=== PATIENT | female | born 1980 | race Caucasian/White ===

== ENCOUNTER 2016-07-27 21:17 | Emergency (ER) | payer MEDICAID ==
[~2016-07-27] VITALS: Ht 170.2 cm; Wt 113.6 kg
[~2016-07-27 21:17] MED LIST: ALBUTEROL MDI IH; ALBUTEROL0.09 MG/A1 IH; AMOXICILLIN 50500 MG PO; BRINTELLIX10; CELEXA10 MG PO; DIABETA 5MG5 MG/TAB PO; DOXYCYCLINE 10100 MG PO; GLUCOPHAGE500 MG/TAB PO; GRALISE600 MG PO; JANUVIA25 MG PO; MEDROL 4MG DOSPA4 MG PO; MOBIC15 MG PO; NEURONTIN800 MG/TAB PO; NORCO 325 MG-51 TAB PO; PERCOCET 325 MG1 TAB; PHENERGAN 25 TA25 MG PO; PRILOSEC 20MG20 MG PO; ULTRAM 50MG TAB50 MG PO
[2016-07-27 21:25] VITALS: TEMP 98.5
[2016-07-27 22:33] LABS: BASO # 0.1 (0.0-0.2); BASO % 0.5 % (0.0-2.0); EOS # 0.3 (0.0-0.7); EOS % 1.8 % (0-4.0); GRAN # 7.8 (1.4-6.5); GRAN % 55.6 % (42.2-75.2); HEMATOCRIT 48.2 % (37.0-47.0); LYMPH # 4.7 (1.2-3.4); LYMPH % 33.5 % (20.0-51.0); MEAN CELL VOLUME 84 fl (80.0-100.0); MEAN CORPUSCULAR HEMOGLOBIN 28 pg (27.0-31.0); MEAN CORPUSCULAR HGB CONC 33 g/dl (33.0-37.0); MEAN PLATELET VOLUME 10.4 fl (7.4-10.4); MONO # 1.2 (0.1-0.6); MONO % 8.3 % (1.7-9.3); PLATELET COUNT 265 K/mm3 (130-400); RED BLOOD COUNT 5.76 M/mm3 (4.10-5.30); REDCELL DISTRIBUTION WIDTH-CV 13.1 % (11.5-14.5); WHITE BLOOD COUNT 13.9 K/mm3 (4.8-10.8)
[2016-07-27 22:43] LABS: ADJUSTED CALCIUM 10.1 mg/dL (8.4-10.2); ALANINE AMINOTRANSFERASE 24 U/L (9-52); ALBUMIN 4.4 gm/dL (3.5-5.0); ALKALINE PHOSPHATASE 93 U/L (50-136); ANION GAP 15 mmol/L (7-16); BILIRUBIN,TOTAL 0.7 mg/dL (0.0-1.0); BLOOD UREA NITROGEN 13 mg/dL (7-17); CALCIUM 10.4 mg/dL (8.4-10.2); CARBON DIOXIDE 27 mmol/L (22-30); CHLORIDE 100 mmol/L (98-107); CREATININE, serum 0.69 mg/dL (0.52-1.25); GLUCOSE 159 mg/dL (74-106); POTASSIUM 4.3 mmol/L (3.4-5.0); SODIUM 142 mmol/L (137-145); TOTAL PROTEIN 8.3 gm/dL (6.4-8.2)
[2016-07-27 23:05] LABS: TROPONIN-I < 0.012 ng/mL (0.000-0.034)
[2016-07-27 23:38] VITALS: BP 114/52; PULSE 108
== END 2016-07-27 23:38 | disposition home or self-care (01) ==
LOC: COL.ER 21:17
PROVIDERS: Family Medicine
DX: R07.9 Chest pain, unspecified (principal); E11.9 Type 2 diabetes mellitus without complications; F17.210 Nicotine dependence, cigarettes, uncomplicated; Z79.84 Long term (current) use of oral hypoglycemic drugs
CPT/HCPCS: J1885

== ENCOUNTER → 2016-08-20 | Outpatient (CLI) | payer MEDICAID | LOC: COL.RAD 12:48 | DX: M25.561 Pain in right knee (principal); M25.562 Pain in left knee; G89.29 Other chronic pain ==

== ENCOUNTER 2017-09-01 12:00 | Emergency (ER) | payer MEDICAID ==
[~2017-09-01] VITALS: Ht 170.2 cm; Wt 98.6 kg
[2017-09-01 12:09] VITALS: BP 126/87; TEMP 98.1
[2017-09-01] MEDS ORDERED: ULTRAM 50MG TAB50 MG PO (13:21)
[2017-09-01] MEDS ORDERED: AMOXICILLIN 50500 MG PO (13:21)
[2017-09-01 13:28] VITALS: PULSE 88
== END 2017-09-01 13:28 | disposition home or self-care (01) ==
LOC: COL.ER 12:00
DX: K02.9 Dental caries, unspecified (principal); E11.9 Type 2 diabetes mellitus without complications; F41.9 Anxiety disorder, unspecified; K50.90 Crohn's disease, unspecified, without complications; F17.210 Nicotine dependence, cigarettes, uncomplicated; Z98.890 Other specified postprocedural states; M79.7 Fibromyalgia

== ENCOUNTER 2017-12-22 17:26 | Emergency (ER) | payer MEDICAID ==
[~2017-12-22] VITALS: Ht 67 cm; Wt 86.4 kg
[2017-12-22 17:26] VITALS: TEMP 97.6
[2017-12-22 19:01] VITALS: BP 132/93; PULSE 110
== END 2017-12-22 19:05 | disposition home or self-care (01) ==
LOC: COL.ER 17:26
DX: S01.111A Laceration without foreign body of right eyelid and periocular area, initial encounter (principal); S09.90XA Unspecified injury of head, initial encounter; E11.9 Type 2 diabetes mellitus without complications; Z23 Encounter for immunization; Z79.84 Long term (current) use of oral hypoglycemic drugs; W19.XXXA Unspecified fall, initial encounter; Y92.002 Bathroom of unspecified non-institutional (private) residence as the place of occurrence of the external cause

== ENCOUNTER 2019-09-18 21:08 | Emergency (ER) | payer SELFPAY ==
[~2019-09-18] VITALS: Ht 172.7 cm; Wt 97.3 kg
[~2019-09-18 21:08] MED LIST changes: +NEURONTIN600 MG/TAB PO
[2019-09-18 21:13] VITALS: TEMP 98.2
[2019-09-18 23:30] VITALS: BP 104/86; PULSE 83
== END 2019-09-18 23:30 | disposition home or self-care (01) ==
LOC: COL.ER 21:08
DX: M51.27 Other intervertebral disc displacement, lumbosacral region (principal); M48.07 Spinal stenosis, lumbosacral region; Z79.84 Long term (current) use of oral hypoglycemic drugs; X50.1XXA Overexertion from prolonged static or awkward postures, initial encounter; W19.XXXA Unspecified fall, initial encounter
CPT/HCPCS: J2270; J2550; J3360

== ENCOUNTER 2019-09-20 12:41 | Emergency (ER) | payer SELFPAY ==
[~2019-09-20] VITALS: Ht 172.7 cm; Wt 97.3 kg
[2019-09-20 12:48] VITALS: TEMP 97
[2019-09-20 14:36] LABS: BASO % 0.2 % (0.0-2.0); EOS % 0.1 % (0-4.0); GRAN # 12.1 (1.4-6.5); GRAN % 70.5 % (42.2-75.2); HEMATOCRIT 43.1 % (37.0-47.0); HEMOGLOBIN 14.7 g/dl (12.5-16.0); LYMPH # 3.5 (1.2-3.4); LYMPH % 20.5 % (20.0-51.0); MEAN CELL VOLUME 87 fl (80.0-100.0); MEAN CORPUSCULAR HEMOGLOBIN 30 pg (27.0-31.0); MEAN CORPUSCULAR HGB CONC 34 g/dl (33.0-37.0); MEAN PLATELET VOLUME 10.3 fl (7.4-10.4); MONO # 1.4 (0.1-0.6); MONO % 8.1 % (1.7-9.3); PLATELET COUNT 329 K/mm3 (130-400); RED BLOOD COUNT 4.96 M/mm3 (4.10-5.30); REDCELL DISTRIBUTION WIDTH-CV 12.7 % (11.5-14.5)
[2019-09-20 14:48] LABS: ALBUMIN 4.3 gm/dL (3.5-5.0); BILIRUBIN,TOTAL 0.6 mg/dL (0.0-1.0); C-REACTIVE PROTEIN 1.7 mg/dL (0.0-0.9); CALCIUM 9.5 mg/dL (8.4-10.2); CREATININE, serum 0.35 (0.52-1.25); POTASSIUM 4.1 mmol/L (3.4-5.0); TOTAL PROTEIN 7.6 gm/dL (6.4-8.2)
[2019-09-20 15:27] LABS: ERYTHROCYTE SEDIMENTATION RATE 6 mm/hr (0-20)
[2019-09-20 18:55] VITALS: BP 132/86; PULSE 96
== END 2019-09-20 18:55 | disposition short-term general hospital (02) ==
LOC: COL.ER 12:41
PROVIDERS: Emergency Medicine
DX: M51.17 Intervertebral disc disorders with radiculopathy, lumbosacral region (principal); E11.9 Type 2 diabetes mellitus without complications; M79.7 Fibromyalgia; F20.9 Schizophrenia, unspecified; F17.210 Nicotine dependence, cigarettes, uncomplicated; Z79.84 Long term (current) use of oral hypoglycemic drugs
CPT/HCPCS: J1170; J3010; J3360; J7030

== ENCOUNTER 2019-09-25 03:49 | Emergency (ER) | payer MEDICAID ==
[~2019-09-25] VITALS: Ht 172.7 cm; Wt 95.5 kg
[2019-09-25 03:54] VITALS: TEMP 97.8
[2019-09-25 05:21] VITALS: BP 154/70; PULSE 80
== END 2019-09-25 05:24 | disposition home or self-care (01) ==
LOC: COL.ER 03:49
DX: G89.18 Other acute postprocedural pain (principal); M54.5 Low back pain; E11.9 Type 2 diabetes mellitus without complications; F20.9 Schizophrenia, unspecified; M79.7 Fibromyalgia; Z79.84 Long term (current) use of oral hypoglycemic drugs
CPT/HCPCS: J1170

== ENCOUNTER 2019-09-28 00:43 | Emergency (ER) | payer MEDICAID ==
[~2019-09-28] VITALS: Ht 172.7 cm; Wt 93.2 kg
[2019-09-28 00:44] VITALS: TEMP 98.5
[2019-09-28 02:27] LABS: COLLECTION METHOD CLEAN CATCH
[2019-09-28 02:35] LABS: MUCOUS Present /lpf; PH 5 (5-8); URINE APPEARANCE Clear; URINE BACTERIA Rare /hpf; URINE BILIRUBIN Negative (NEGATIVE); URINE BLOOD Negative (NEGATIVE); URINE COLOR Yellow; URINE GLUCOSE 1+ (NEGATIVE); URINE KETONE Trace (NEGATIVE); URINE LEUKOCYTE ESTERASE Negative (NEGATIVE); URINE NITRATE Negative (NEGATIVE); URINE PROTEIN(semi-quant) 1+ (NEGATIVE); URINE RBC None Seen /hpf; URINE UROBILINOGEN Negative (NEGATIVE)
[2019-09-28 04:00] VITALS: BP 117/78; PULSE 95
== END 2019-09-28 04:00 | disposition home or self-care (01) ==
LOC: COL.ER 00:43
PROVIDERS: Emergency Medicine
DX: M54.5 Low back pain (principal); G89.18 Other acute postprocedural pain; F41.9 Anxiety disorder, unspecified; E11.9 Type 2 diabetes mellitus without complications; F20.9 Schizophrenia, unspecified; M79.7 Fibromyalgia; F17.210 Nicotine dependence, cigarettes, uncomplicated; Z79.84 Long term (current) use of oral hypoglycemic drugs; W18.39XA Other fall on same level, initial encounter; Y92.009 Unspecified place in unspecified non-institutional (private) residence as the place of occurrence of the external cause
CPT/HCPCS: J1170; J7030